=== PATIENT | male | born 2000 | race Caucasian/White ===

== ENCOUNTER 2024-03-20 13:23 | Emergency (ER) | payer OTHER ==
[2024-03-20 13:54] VITALS: BP 123/77; PULSE 61; RESP 16; TEMP 98.6; BMI 23.1
[2024-03-20] MEDS ORDERED: DEXAMETHASONE SOD PHOSPHATE 10 MG/1 ML VIAL ONE (14:28)
[2024-03-20] MEDS: DEXAMETHASONE SOD PHOSPHATE 10 MG/1 ML VIAL IM ONE (14:33)
[2024-03-20 16:47] LABS: THROAT:GRP A STREP NOT DETECTED (NOTDETECTED)
== END 2024-03-20 14:45 | disposition home or self-care (01) ==
LOC: FER 13:23
PROC: 3E023GC Introduction of Other Therapeutic Substance into Muscle, Percutaneous Approach (ICD-10-PCS; principal; 2024-03-20)
DX: R07.0 Pain in throat (principal); K12.2 Cellulitis and abscess of mouth; R68.84 Jaw pain; R22.0 Localized swelling, mass and lump, head; Z20.822 Contact with and (suspected) exposure to COVID-19
CPT/HCPCS: 0241U-QW; 87070; 87651; 99284-25; J1100

== ENCOUNTER 2024-04-22 16:56 | Emergency (ER) | payer OTHER ==
[2024-04-22 17:07] VITALS: BP 112/70; PULSE 80; RESP 18; TEMP 97.6; BMI 26.8
== END 2024-04-22 18:47 | disposition home or self-care (01) ==
LOC: JERFT 16:56
DX: L29.9 Pruritus, unspecified (principal); B35.6 Tinea cruris
CPT/HCPCS: 99283-25